=== PATIENT | female | born 1940 | race African-American/Black ===

== ENCOUNTER → 2018-07-31 | Outpatient (CLI) | payer OTHER ==
[~2018-07-31] VITALS: Ht 162.6 cm; Wt 72.6 kg
[~2018-07-31] MED LIST: ALDACTONE25 MG PO; ASPIR 8181 MG PO; CIPRO500 MG PO; COREG25 MG PO; FLAGYL500 MG PO; LISINOPRIL10 MG PO; NORTRIPTYLINE H10 M1 PO; PROBIOTIC1 EAC1 PO; TORSEMIDE10 MG PO; TORSEMIDE5 MG PO; VENTOLIN HFA 1818 GM INH
[2018-07-31 14:04] VITALS: BP 145/68
--- NOTE | 2018-07-31 14:39 | NUR ---
Pain Clinic Assessment: 1. History of Osteoarthritis: KNEE History of Rheumatoid Arthritis: Not Applicable 2. Height: 5 ft. 4 in. 162.6 cm. Weight: 160.0 lb. oz. 72.576 kg. Patient's BMI: 27.5 3. Vital Signs: BP: 145/68 Pulse: 79 Resp: 16 Temp: 02 Sat: 100 ECG Mon: 4. Pain Intensity: 8 5. Fall Risk: Dizziness: Y Needs help standing or walking: Y Fallen in the last 3 months: N Fall risk comments: 6. Patient on Blood Thinner: None 7. History of Hypertension: Y 8. Opioid Therapy greater than 6 weeks: N Opiate Contract Signed: 9. Risk Assessment Tool Provided: 10. Functional Assessment Tool: 11. Recreational Drug Use: Never Drug Type: Tobacco Use: Never Smoker Tobacco Type: Amount or Packs/day: How Many Years: Alcohol Use: No Frequency: Quant:
== END | disposition home or self-care (01) ==
LOC: EDBD → PAIN 06:57
DX: M54.16 Radiculopathy, lumbar region (principal); G89.29 Other chronic pain; I12.9 Hypertensive chronic kidney disease with stage 1 through stage 4 chronic kidney disease, or unspecified chronic kidney disease; N18.9 Chronic kidney disease, unspecified; I25.10 Atherosclerotic heart disease of native coronary artery without angina pectoris; J45.909 Unspecified asthma, uncomplicated; M19.90 Unspecified osteoarthritis, unspecified site; K21.9 Gastro-esophageal reflux disease without esophagitis; I48.91 Unspecified atrial fibrillation; G47.30 Sleep apnea, unspecified; Z98.890 Other specified postprocedural states; Z86.73 Personal history of transient ischemic attack (TIA), and cerebral infarction without residual deficits; Z98.49 Cataract extraction status, unspecified eye; Z79.01 Long term (current) use of anticoagulants; Z79.899 Other long term (current) drug therapy

== ENCOUNTER → 2019-08-20 | Outpatient (CLI) | payer OTHER ==
[~2019-08-20] VITALS: Ht 162.6 cm; Wt 85.5 kg
[2019-08-20 11:19] VITALS: BP 163/75
--- NOTE | 2019-08-20 11:27 | NUR ---
Pain Clinic Assessment: 1. History of Osteoarthritis: KNEE History of Rheumatoid Arthritis: Not Applicable 2. Height: 5 ft. 4 in. 162.6 cm. Weight: 188.4 lb. oz. 85.458 kg. Patient's BMI: 32.3 3. Vital Signs: BP: 163/75 Pulse: 81 Resp: 18 Temp: 02 Sat: 97 ECG Mon: 4. Pain Intensity: 85-8 5. Fall Risk: Dizziness: N Needs help standing or walking: Y Fallen in the last 3 months: N Fall risk comments: 6. Patient on Blood Thinner: None 7. History of Hypertension: Y 8. Opioid Therapy greater than 6 weeks: N Opiate Contract Signed: 9. Risk Assessment Tool Provided: 10. Functional Assessment Tool: 11. Recreational Drug Use: Never Drug Type: Tobacco Use: Never Smoker Tobacco Type: Amount or Packs/day: How Many Years: Alcohol Use: No Frequency: Quant:
--- NOTE | 2019-08-27 08:38 | HPC ---
[facility] [place] [address] PAIN MANAGEMENT CONSULTATION Name: JAEL ESPANA Room #: REG RAFIQ McdermottBogdanPia.#: [id number] Admission: 08/20/19 Attend Phys: Leighann Whitehead MD Discharge: Date of : 44 Report #: [id number] THIS REPORT FOR: cc: Viktoria Bell MD,Viktoria Whitehead,Leighann Ervin MD ~ CC: Viktoria Whitehead DATE OF SERVICE: 08/20/2019 CHIEF COMPLAINT: Continued groin pain. HISTORY: The patient is a 78-year-old female who has been seen in the Pain Clinic because of groin pain. She has noticed increased pain and discomfort with activities of daily living. She noticed this pain and discomfort, which is quite problematic, particularly when she is sitting down, trying to get up from a seated position, particularly in the bathroom can be quite problematic. She has difficulty getting in and out of the van. She had an epidural injection about a year ago. That seemed to have worked quite well. She has noticed an increase in pain and discomfort and has returned to the Pain Clinic for an evaluation and possibility of another epidural injection. ALLERGIES: No known drug allergies. CURRENT MEDICATIONS: Albuterol, nortriptyline 10 mg, aspirin 81 mg, spironolactone 25 mg, torsemide 5 mg, lisinopril 10 mg, Coreg 25 mg. PAIN CLINIC ASSESSMENT/PQRS: 1. The patient has some pain and discomfort involving her knees. She is not being treated for rheumatoid arthritis. 2. Height 5 feet 4 inches, weight 188 pounds, BMI is 32.3. 3. Vital signs: Blood pressure 163/75, pulse 81, respiratory rate 18, room air saturation 97%. 4. Pain intensity, 5-8. 5. Fall risk. The patient has not fallen since we saw her last. 6. Blood thinner. The patient is not on a blood thinning medication. 7. Hypertension. The patient is being treated for hypertension. 8. Opioids. The patient is not on any opioid regimen. 9. Risk assessment tool, low for opioid use. 10. Functional assessment tool, . 11. Tobacco: The patient has never smoked. 12. Recreational drugs. The patient denies. 13. Alcohol: The patient denies. [facility] [address] [place] [address] PAIN MANAGEMENT CONSULTATION Name: JAEL ESPANA Room #: REG RAFIQ Lena#: [id number] Admission: 08/20/19 Attend Phys: Leighann Whitehead MD Discharge: Date of : 44 Report #: [id number] PHYSICAL EXAMINATION: GENERAL: The patient is a well-developed, well-nourished black female, appears her stated age. She is alert and oriented x 3. Her affect is appropriate. Speech is fluent. HEENT: Normocephalic, atraumatic. Extraocular eye muscles intact. The patient is accompanied by her daughter. She speaks Spanish well. She is wearing a mask. She complains of pain and discomfort in the groin area and complains of pain that radiates down into the anterior portion of her thighs. NECK: Without adenopathy or JVD. HEART: Regular rate. CHEST: Generally clear. ABDOMEN: Protuberant. EXTREMITIES: Upper extremity muscle strength appears to be 5-/5 for the major muscle groups in the upper extremity. The patient is in a wheelchair. IMPRESSION: 1. Lumbar radiculopathy, L2-L3 dermatomal distribution. 2. Hypertension. 3. Peripheral vascular disease. 4. Dyslipidemia. 5. Arthritis. 6. History of left bundle-branch block. 7. Sleep apnea. 8. Coronary artery disease. 9. Ischemic cardiomyopathy. 10. Right frontal meningioma. 11. Chronic kidney disease. 12. Spinal stenosis. 13. Diverticulitis. 14. Chronic thrombocytopenia. 15. Gastroesophageal reflux. 16. Uterine leiomyoma. 17. Stroke/transient ischemic attack. 18. History of atrial fibrillation. 19. Thoracic aortic aneurysm. 20. Obesity. 21. Biventricular cardiac pacemaker placement. 22. Hyperlipidemia. RECOMMENDATIONS: We discussed treatment options with the patient and her daughter. At this point, she is having a return of pain in the groin area. After the last injection, she noticed about a year of improvement. She has noticed a worsening of the pain and has returned to the Pain Clinic with a desire to undergo an injection. We have discussed the risks and benefits to the patient. They include but are not limited to infection, worsening of pain, no improvement in pain, nerve damage, spinal headache and the patient elects to [address] [address] PAIN MANAGEMENT CONSULTATION Name: RADHAJAEL Mcdermott Room #: REG [facility].#: [id number] Admission: 08/20/19 Attend Phys: Leighann Whitehead MD Discharge: Date of : 44 Report #: [id number]. PROCEDURE NOTE: The patient was taken to the procedure area. She was then assisted in getting on the examination table. Her back was sterilely prepped with a Betadine solution and allowed to dry. Fluoroscopy using anterior and posterior viewing were implemented. An attempt was made at L1-L2. This was on the right side. We were unsuccessful. We moved to the left side and an attempt at this area was performed. There was no CSF, heme or paresthesia. A total of 80 mg Depo-Medrol, 40 mg triamcinolone were injected. The patient tolerated the procedure well. There were no complications. She was taken to the procedure area. She will follow up in the future as needed. We would like to thank you for letting us participate in her care. We hope she continues to improve. <ELECTRONICALLY SIGNED> By: Leighann Whitehead MD 08/27/19 [id number] Leighann Whitehead MD /nt
== END | disposition home or self-care (01) ==
LOC: PAIN 06:56
PROVIDERS: ATTEND Anesthesiology Pain Medicine
DX: R10.2 Pelvic and perineal pain (principal); M54.16 Radiculopathy, lumbar region; E78.5 Hyperlipidemia, unspecified; M19.90 Unspecified osteoarthritis, unspecified site; G47.30 Sleep apnea, unspecified; I25.10 Atherosclerotic heart disease of native coronary artery without angina pectoris; I12.9 Hypertensive chronic kidney disease with stage 1 through stage 4 chronic kidney disease, or unspecified chronic kidney disease; N18.9 Chronic kidney disease, unspecified; K21.9 Gastro-esophageal reflux disease without esophagitis; E66.9 Obesity, unspecified; Z79.899 Other long term (current) drug therapy; Z98.890 Other specified postprocedural states